=== PATIENT | female | born 1980 | race African-American/Black ===

== ENCOUNTER 2018-03-17 10:35 | Emergency (ER) | payer SELFPAY ==
[~2018-03-17] VITALS: Ht 160 cm; Wt 97.5 kg
--- OUTSIDE RECORDS SUMMARY | 2018-03-17 10:37 | XMS REPORT | Clinical Summary ---
Author Author [facility] Address Unknown Phone Unavailable Care Team Providers Care Fugitive Detective Name Role Phone PCP Unavailable Allergies No Known Allergies Current Medications Prescription Sig. Disp. Refills Start End Date Status Date aspirin 81 MG EC tablet Take 81 mg by mouth Active daily. lisinopril Take 1 tablet (20 mg 60 tablet 0 06/30/20 Active (PRINIVIL,ZESTRIL) 20 MG total) by mouth daily. 15 tabletIndications: hypertension metoprolol (LOPRESSOR) 50 Take 2 tablets (100 mg 120 tablet 0 Active MG tablet total) by mouth 2 (two) 15 times daily. metoprolol (LOPRESSOR) Take 1 tablet (100 mg 60 tablet 0 10/10/20 100 MG tablet total) by mouth 2 (two) 17 17 times daily for 30 days. 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 12/17/2013 Encounters Date Type Specialty Care Team Description 10/10/2017 Emergency Emergency Medicine Ricky Sheth DO Essential hypertension (Primary Dx);Encounter for medication refill after 03/16/2017 Family History Medical History Relation Name Comments Hypertension Brother Cancer Father liver CA Hypertension Mother Relation Name Status Comments Brother Father Mother Alive Social History Tobacco Use Types Packs/Day Years Used Date Never Smoker Smokeless Tobacco: Never Used Alcohol Use Drinks/Week oz/Week Comments Yes 2 Glasses of 1.2 socially wine Sex Assigned at Date Recorded Not on file Last Filed Vital Signs Vital Sign Reading Time Taken Blood Pressure 189/106 10/10/2017 7:36 PM [employer] Pulse 72 10/10/2017 7:36 PM [employer] Temperature 36.8 C (98.3 F) 10/10/2017 6:13 PM [employer] Respiratory Rate 16 10/10/2017 7:36 PM [employer] Oxygen Saturation 100% 10/10/2017 7:36 PM [employer] Inhaled Oxygen - - Concentration Weight 98.9 kg (218 lb) 10/10/2017 6:13 PM [employer] Height - - Body Mass Index 38.62 10/10/2017 6:13 PM [employer] Plan of Treatment Health Maintenance Due Date Last Done Comments INFLUENZA VACCINE 08/14/2018 Results Not on fileafter 03/16/2017
[2018-03-17 12:42] VITALS: BP 136/97
== END 2018-03-17 12:35 | disposition home or self-care (01) ==
LOC: FSED 10:35
DX: R50.9 Fever, unspecified (principal); R51 Headache
CPT/HCPCS: 81003; 85025; 99283